=== PATIENT | female | born 1980 | race Caucasian/White ===

== ENCOUNTER → 2020-12-09 15:49 | Outpatient (CLI) | payer BC, SELFPAY ==
--- NOTE | ~2020-12-09 | US_ITS ---
EXAMINATION: US soft tissue head and neck EXAM DATE: 12/09/2020 16:26 INDICATION: Lymphadenopathy . TECHNIQUE: Multiple grayscale and Doppler images of the neck for lymphadenopathy were obtained (by a technologist who performed the scan) and subsequently reviewed. There is no prior study for comparis on. FINDINGS: In the right side of the neck to lesions most likely lymph nodes were measured at 1.7 x 0.4 x 0.8 cm, and a submandibular lesion at 2.4 x 0.5 x 1.4 cm which is mildly enlarged. In the left side of the neck 3 regions were measured, probably normal-sized lymph nodes at 1.0 x 0.2 x 0.7 cm, 0.4 x 0.2 x 0.7 cm, 1.5 x 0.2 x 0.7 cm. Incidental note made of category TR 4 left thyroid lobe nodule measuring 3.2 x 1.7 x 1.7 cm. IMPRESSION: 1. Mildly enlarged right submandibular lymph node. Could be reactive, recommend clinical follow-up a nd if it enlarges repeat exam. 2. Left thyroid lobe nodule large enough to recommend ultrasound-guided biopsy. Reviewed, dictated and finalized at location A. PICKER IMPRESSION: 1. Mildly enlarged right submandibular lymph node. Could be reactive, recommen d clinical follow-up and if it enlarges repeat exam. 2. Left thyroid lobe nodule large enough to recommend ultrasound-guided biopsy .
== END ==
PROVIDERS: PCP Nurse Practitioner Family; Visit Provider Nurse Practitioner Family
DX: R59.0 Localized enlarged lymph nodes (principal)
CPT/HCPCS: 76536

== ENCOUNTER 2020-12-21 09:29 | Outpatient (CLI) | payer BC, SELFPAY ==
--- NOTE | ~2020-12-21 | US_ITS ---
EXAMINATION: US FNA w image guidance DATE: 12/21/2020 10:29 INDICATION: Left thyroid nodule. TECHNIQUE: The procedure and its benefits and risks were discussed with the patient. Risks specifically discusse d included bleeding. The patient verbalized understanding of the risks and agreed to proceed. The nec k was prepped and draped in the usual sterile manner. 1% lidocaine was used for local anesthesia. 5 passes were made with a 25G needle into the lesion under ultrasound guidance. There were no immedia te complications. The patient understood to call the ordering physician for results after a week and a half and verbalized that understanding. FINDINGS: Grayscale ultrasound images demonstrate needles advanced into a 2.9 cm nodule in left thyroid lobe fo r biopsy. IMPRESSION: 1. Ultrasound-guided fine needle aspiration of a left thyroid nodule. Reviewed, dictated and finalized at location A. SCENER
== END 2020-12-21 09:30 | disposition home or self-care (01) ==
PROVIDERS: PCP Nurse Practitioner Family; Visit Provider Nurse Practitioner Family
DX: E04.1 Nontoxic single thyroid nodule (principal)
CPT/HCPCS: 10005; 88173; 88305

== ENCOUNTER → 2021-02-10 14:08 | Outpatient (CLI) | payer BC, SELFPAY ==
--- NOTE | ~2021-02-10 | MM_ITS ---
EXAMINATION: MM screening [facility] BI w carroll HISTORY: Screening mammogram TECHNIQUE: Craniocaudal and mediolateral oblique 3-D tomosynthesis images were obtained and synthetic 2-D images were generated. CAD analysis was submitted and interpreted. COMPARISON: 07/20/2019, 10/09/2005 BREAST PARENCHYMAL COMPOSITION: The breasts are extremely dense, which lowers the sensitivity of mamm ography. FINDINGS: There is no evidence of suspicious mass, calcification, or architectural distortion to sugg est malignancy in either breast. There has been no suspicious interval change. IMPRESSION: 1. No mammographic evidence of malignancy. 2. Recommend routine screening mammography in one year. BI-RADS Category 1: Negative Reviewed, dictated and finalized at location A.
== END ==
PROVIDERS: Visit Provider Obstetrics & Gynecology
DX: Z12.31 Encounter for screening mammogram for malignant neoplasm of breast (principal)
CPT/HCPCS: 77063; 77067

== ENCOUNTER 2021-07-07 09:19 | Outpatient (CLI) | payer BC, SELFPAY ==
--- NOTE | ~2021-07-07 | MMUS_ITS ---
EXAMINATION: MM diagnostic bryan LT w carroll, US breast LT limited HISTORY: Palpable left breast abnormality. TECHNIQUE: Additional 3-D tomosynthesis images of the left breast were performed and synthetic 2-D im ages were generated. CAD analysis was submitted and interpreted. High resolution Limited left breast ultrasound was performed. COMPARISON: Comparison to multiple prior studies sequentially, with oldest reviewed study dated 07/20. BREAST PARENCHYMAL COMPOSITION: The breasts are extremely dense, which lowers the sensitivity of mamm ography. FINDINGS: MAMMOGRAPHIC FINDINGS: There are no suspicious masses, calcifications or architectural distortion in the left breast to sugg est malignancy. ULTRASOUND: Limited left breast ultrasound: Normal heterogeneous echotexture without focal solid or cystic mass. IMPRESSION: 1. No evidence for malignancy in the left breast. 2. Routine yearly screening mammogram and regular clinical breast examination are recommended. BI-RADS Category 1: Negative Reviewed, dictated and finalized at location A. IMPRESSION: 1. No evidence for malignancy in the left breast. 2. Routine yearly screening mammogram and regular clinical breast examination a re recommended. BI-RADS Category 1: Negative
--- NOTE | ~2021-07-07 | US_ITS ---
EXAMINATION: US pelvic complete w TV DATE: 07/07/2021 09:10 INDICATION: IUD placement Comparison:No prior studies for comparison. TECHNIQUE: Multiple transabdominal and endovaginal sonographic images of the pelvis performed. FINDINGS: The uterus measures 10.7 x 6.2 x 5 cm. There is an IUD in the endometrium. The endometrial complex measures 5 mm. The right ovary measures 2 x 1.9 x 1.9 cm and the left ovary measures 3 x 2.7 x 2.6 cm. There is a 2 cm left ovarian cyst. There are small follicles in each ovary. Normal doppler signal in both ovaries. There is no free fluid in the pelvis. There are no abnormal masses seen on either side. IMPRESSION: 1. Mildly enlarged uterus. IUD present in the endometrium. 2: Left ovarian cyst measuring 2 cm. Reviewed, dictated and finalized at location A.
== END 2021-07-07 09:20 | disposition home or self-care (01) ==
LOC: ANHIMG 09:20
PROVIDERS: PCP Nurse Practitioner Family; Visit Provider Student in an Organized Health Care Education/Training Program
DX: N63.0 Unspecified lump in unspecified breast (principal); N94.10 Unspecified dyspareunia; N83.202 Unspecified ovarian cyst, left side
CPT/HCPCS: 76642; 76830; 76856; 77061; 77065; G0279

== ENCOUNTER 2022-06-11 10:04 | Outpatient (CLI) | payer OTHER, SELFPAY ==
--- NOTE | ~2022-06-11 | US_ITS ---
US axilla LT 06/11/2022 10:28 Indication: Palpable left axillary lump for several years Procedure: High-resolution Limited ultrasound of the left axilla Comparison: No prior studies for comparison. Findings: There is a normal-appearing lymph node in the area of palpable concern in the axilla measur ing 4 x 2 mm. No suspicious masses to suggest malignancy. Impression: 1: Normal left axillary lymph node measuring up to 4 mm, corresponding to the palpable finding. Routine yearly screening mammogram and regular clinical breast examination are recommended. BI-RADS CATEGORY 2 - BENIGN FINDINGS Reviewed, dictated and finalized at location A. Impression: 1: Normal left axillary lymph node measuring up to 4 mm, corresponding to the p alpable finding. Routine yearly screening mammogram and regular clinical breast examination are recommended. BI-RADS CATEGORY 2 - BENIGN FINDINGS
== END 2022-06-11 10:05 | disposition home or self-care (01) ==
PROVIDERS: PCP Nurse Practitioner Family; Visit Provider Nurse Practitioner Family
DX: R59.0 Localized enlarged lymph nodes (principal)
CPT/HCPCS: 76882

== ENCOUNTER 2022-09-15 08:51 | Outpatient (CLI) | payer OTHER, SELFPAY ==
--- NOTE | ~2022-09-15 | MM_ITS ---
EXAMINATION: MM screening [facility] BI w carroll HISTORY: Screening mammogram TECHNIQUE: Craniocaudal and mediolateral oblique 3-D tomosynthesis images were obtained and synthetic 2-D images were generated. CAD analysis was submitted and interpreted. COMPARISON: 07/07/2021, 02/10/2021, 07/20/2019 BREAST PARENCHYMAL COMPOSITION: The breasts are extremely dense, which lowers the sensitivity of mamm ography. FINDINGS: No suspicious mass, calcification, or architectural distortion are identified in either rogelio ast to suggest malignancy. There has been no suspicious interval change. IMPRESSION: 1. No mammographic evidence of malignancy. 2. Recommend routine screening mammography in one year. BI-RADS Category 1: Negative Reviewed, dictated and finalized at location A. EBACK EXCAVATOR
== END 2022-09-15 08:52 | disposition home or self-care (01) ==
LOC: ANHIMG 08:52
PROVIDERS: PCP Nurse Practitioner Family; Visit Provider Obstetrics & Gynecology
DX: Z12.31 Encounter for screening mammogram for malignant neoplasm of breast (principal)
CPT/HCPCS: 77063; 77067

== ENCOUNTER 2023-06-17 02:13 | Day surgery (SDC) | payer OTHER, SELFPAY ==
[2023-06-05 11:47] VITALS: BMI 20.5
[2023-06-17 07:52] VITALS: BP 117/65; PULSE 76; RESP 18; TEMP 36.2; O2SAT 100
[2023-06-17] MEDS: LACTATED RINGERS 1,000 ML 150 ML IV CONT (07:58)
--- NOTE | 2023-06-17 08:39 | WPDANESEPPF ---
Anes - Initial Pre Proc Eval Procedure: Operation Date: 06/17/23 09:00 Proposed Procedures p Screening Colonoscopy - Jase Fuentes MD Date/Time: 06/17/23 08:39 Surgeon: Jase Fuentes MD Pre Op Diagnosis: neoplasm screening Patient Data Age: 43 Gender: F Height: 1.73 m Weight: 59.7 kg Last Vital Signs Temp 97.2 F L 06/17/23 07:52 Pulse 76 06/17/23 07:52 Resp 18 06/17/23 07:52 BP 117/65 06/17/23 07:52 Pulse Ox 100 06/17/23 07:52 O2 Del Method Room Air 06/17/23 07:52 Allergies Allergy/AdvReac Type Severity Reaction Status Date / Time No Known Allergies Allergy Unverified 06/17/23 07:49 Home Medications Medication Instructions Recorded Confirmed Type levonorgestrel 21 mcg/24 hours (8 1 insert intrauterine ONCE 06/09/21 06/05/23 History yrs) 52 mg intrauterine device (Mirena) Patient hx anesthesia problems: none Family hx anesthesia problems: none Results Review: All pre-operative results and documents have been reviewed as part of the pre-operative evaluation. [facility] Past Medical History Medical History (Updated 04/11/22 @ 09:28 by Michele Gutierrez MD) Abnormal Pap smear of cervix 08/19/2012 ASCUS HPV negative ; 08/03/2010 KLAUS- ASCUS +HPV; 09/04/2010 COLPO - HGSIL ANTON 2; 09/20/2010 LEEP HGSIL ANTON 2; 05/17/2008 ASCUS Hpv negative; 04/27/2004 ASCUS +Hpv; 05/26/2004 COLPO LGSIL ANTON 2 Encounter for insertion of mirena IUD (05/14/19) Encounter for IUD insertion 02/29/12 Mirena insertion 05/14/16 Mirena insertion Encounter for IUD removal 12/28/15 Mirena removal History of in vitro fertilization (~12/2016) did not implant HPV (human papilloma virus) infection Screening mammogram, encounter for Surgical History Surgical History H/O LEEP 09/20/10 HGSIL ANTON 11 History of appendectomy (~2004) History of colposcopy with cervical biopsy 09/04/10 HGSIL ANTON II Family History Family History Father , due to renal cancer Renal cancer Mother Lung cancer Grandparent Cerebrovascular accident maternal grandmother Parkinson's disease paternal grandmother Social History Social History (Updated 04/11/22 @ 08:49 by WHITNEY Wang) Smoking status: Never smoker Alcohol intake: current Drinks per week: 7 Alcohol use details: one glass of wine daily. 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[employer] Gender identity (if verbalized by the patient): Female Sexual Orientation (if Verbalized by the Patient): Straight or Heterosexual Spiritual care concerns: No Anes - Eval Final PreProcedure Day of Procedure 06/17/23 08:39 Patient weight: normal Heart: regular rate and rhythm Lungs: clear to auscultation Airway: Mallampati scale class II Neurological: alert and oriented Last oral intake: >/= 8 hours ASA classification: I Emergent: no Anesthetic plan: proceed Anesthesia type and monitoring: general GIVS and standard monitoring Results Review: All pre-operative results and documents have been reviewed as part of the pre-operative evaluation. Informed Consent: The patient's anesthetic plan and its attendant risks and benefits were discussed with the patient/family/POA. Questions were solicited and answers provided to the satisfaction of the patient/family/POA.
--- NOTE | 2023-06-17 08:44 | PM.HPGS ---
History of Present Illness History of Present Illness Consent: Risks, benefits, and alternatives have been discussed and questions answered. Patient agrees to proceed with procedure. Chief complaint: neoplasm screening Narrative: Roque Noonan is a 43 year old female here for first screening colonoscopy Review of Systems Constitutional: Constitutional: Denies headache(s) and Denies weakness Eyes: Eyes: Denies blurry vision ENT: Reports Normal hearing present, Denies headache(s) and Denies neck pain Cardiovascular: Cardiovascular: Denies chest pain and Denies dyspnea Respiratory: Respiratory: Denies dyspnea Gastrointestinal: Gastrointestinal: Reports no additional gastrointestinal complaints Genitourinary: Genitourinary: Denies dysuria Musculoskeletal: Musculoskeletal: Denies neck pain Integumentary/Breasts: Skin/Breast: Denies dry skin Neurologic: Reports Normal hearing present, Denies headache(s) and Denies weakness Psychiatric: Psychiatric: Denies anxiety Endocrine: Endocrine: Denies change in body appearance Hematologic/Lymphatic: Hematologic/Lymphatic: Denies easy bleeding Allergic/Immunologic: Allergic/Immunologic: Denies urticaria PMFSH Past Medical History Medical History (Updated 06/17/23 @ 08:45 by Jase Fuentes MD) Abnormal Pap smear of cervix 08/19/2012 ASCUS HPV negative ; 08/03/2010 [facility]- ASCUS +HPV; 09/04/2010 COLPO - HGSIL ANTON 2; 09/20/2010 LEEP HGSIL ANTON 2; 05/17/2008 ASCUS Hpv negative; 04/27/2004 ASCUS +Hpv; 05/26/2004 COLPO LGSIL ANTON 2 Colon cancer screening Encounter for insertion of mirena IUD (05/14/19) Encounter for IUD insertion 02/29/12 Mirena insertion 05/14/16 Mirena insertion Encounter for IUD removal 12/28/15 Mirena removal History of in vitro fertilization (~12/2016) did not implant HPV (human papilloma virus) infection Screening mammogram, encounter for Surgical History Surgical History H/O LEEP 09/20/10 HGSIL ANTON 11 History of appendectomy (~2004) History of colposcopy with cervical biopsy 09/04/10 HGSIL ANTON II Family History Family History Father , due to renal cancer Renal cancer Mother Lung cancer Grandparent Cerebrovascular accident maternal grandmother Parkinson's disease paternal grandmother Social History Social History (Updated 04/11/22 @ 08:49 by WHITNEY Wang) Smoking status: Never smoker Alcohol intake: current Drinks per week: 7 Alcohol use details: one glass of wine daily. bc, rma Substance use: current Substance use type: marijuana Last use: ocassional Living arrangements: with family Additional living arrangements comments: Occupation/Education: occupation Additional occupation/education comments: [employer] Gender identity (if verbalized by the patient): Female Sexual Orientation (if Verbalized by the Patient): Straight or Heterosexual Spiritual care concerns: No Meds Home Medications and Allergies Home Medications Medication Instructions Recorded Confirmed Type levonorgestrel 21 mcg/24 hours (8 1 insert intrauterine ONCE 06/09/21 06/05/23 History yrs) 52 mg intrauterine device (Mirena) Allergies Allergy/AdvReac Type Severity Reaction Status Date / Time No Known Allergies Allergy Unverified 06/17/23 07:49 Vital Signs Vital Signs - 24 hr 06/17/23 07:52 Temperature 97.2 F L Pulse Rate 76 Respiratory Rate 18 Blood Pressure 117/65 Pulse Oximetry 100 Oxygen Delivery Room Air Exam Const: General: comfortable and no acute distress HENMT: Face/Nose/Sinus: Normal nares present Eyes: General: appearance normal, both eyes and all related structures Neck: Neck: no JVD Resp: Auscultation: clear to auscultation bilaterally Cardio: Rate: regular rate Rhythm: regular rhythm GI:
[2023-06-17 09:06] VITALS: BP 89/50; PULSE 61; RESP 20; O2SAT 98
[2023-06-17 09:16] VITALS: BP 110/64; PULSE 53; RESP 16; O2SAT 98
[2023-06-17 09:26] VITALS: BP 102/66; PULSE 50; RESP 15; O2SAT 98
== END 2023-06-17 09:34 | disposition home or self-care (01) ==
PROVIDERS: PCP Nurse Practitioner Family; Visit Provider Internal Medicine Gastroenterology
PROC: 0DJD8ZZ Inspection of Lower Intestinal Tract, Via Natural or Artificial Opening Endoscopic (ICD-10-PCS; CPT 45378; principal; 2023-06-17 09:00)
DX: Z12.11 Encounter for screening for malignant neoplasm of colon (principal); K64.8 Other hemorrhoids
CPT/HCPCS: 45378; J2704; J7120

== ENCOUNTER 2025-07-02 08:22 | Outpatient (CLI) | payer BC, SELFPAY ==
--- NOTE | ~2025-07-02 | MM_ITS ---
EXAMINATION: MM screening [facility] BI w carroll HISTORY: Screening TECHNIQUE: Craniocaudal and mediolateral oblique 3-D tomosynthesis images were obtained and synthetic 2-D images were generated. CAD analysis was submitted and interpreted. COMPARISON: Comparison to multiple prior studies sequentially, with oldest reviewed study dated , 07/20/2019 BREAST PARENCHYMAL COMPOSITION: The breasts are extremely dense, which lowers the sensitivity of mammography. FINDINGS: There is no evidence of suspicious mass, calcification, or architectural distortion to suggest malignancy in either breast. IMPRESSION: 1. No mammographic evidence of malignancy. 2. Recommend routine screening mammography in one year. BI-RADS Category 1: Negative Reviewed, dictated and finalized at location B.
--- OUTSIDE RECORDS SUMMARY | 2025-07-02 08:28 | XMS_ITS | Clinical Summary ---
Author Organization [facility] Identified Address [address] [place] [address] Care Team Providers Care Circuit Breaker Supervisor Name Role Phone Unavailable Primary Care Provider Unavailabl e Source Comments [facility] Identified,non-owned Affiliates and Associated Physician Practices is amultiple site organization consisting of ambulatory clinics and hospital sitesin [place], [place], [place]. This disclosure is being madepursuant to the Care Everywhere program and may not contain all information available regarding this patient. Last updated 18.[facility] Identified Allergies No known active allergies Medications * Be aware that medications may not be up to date on this document. Alwaysverify current medications with the patient. 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 Gender Identity Not on file Sexual Orientation Not on file Last Filed Vital Signs Vital Sign Reading Time Taken Comments Blood Pressure 120/80 09/30/2018 9:57 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 Pulse 82 09/30/2018 9:57 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 Temperature 36.7 C (98 F) 09/30/2018 9:57 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 Respiratory Rate 16 09/30/2018 9:57 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 Oxygen Saturation 97% 09/30/2018 9:57 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 Inhaled Oxygen Concentration - - Weight 63.5 kg (140 lb) 09/30/2018 9:57 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 Height 172.7 cm (5' 8) 09/30/2018 9:57 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 Body Mass Index 21.29 09/30/2018 9:57 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 Plan of Treatment Health Maintenance Due Date Last Done Comments COLOGUARD (AGES 45-75) - COL ON CA SCREENING 1978 COLON MONITORING 1978 COLONOSCOPY - COLON CA SCREENING 1978 CT COLONOGRAPHY - COLON CA SCREENING 1978 Colorectal Cancer Screening 1978 FIT - COLON CA SCREENING 1978 FLEX SIG - COLON CA SCREENING 1978 LIPID TESTING 1978 MAMMOGRAM 1978 HIV SCREENING 1993 HEPATITIS C SCREENING 01/28/1996 HEPATITIS B VACCINE (1 of 3 - 19+ 3-dose series) 1997 DEPRESSION SCREENING 10/21/2024 COVID-19 VACCINE (1 - 2023-2 5 season) 2025 INFLUENZA VACCINE (#1) 2025 ZOSTER VACCINE (1 of 2) 02/02/2028 DTAP/TDAP/TD VACCINES (2 - T d or Tdap) 09/30/2028 09/30/2018 HIB VACCINE Aged Out No longer eligi ble based on patient's age to complete this topic HPV VACCINE Aged Out No longer eligi ble based on patient's age to complete this topic MENINGOCOCCAL (Group B) VACC INE SHARED DECISION-MAKING Aged Out No longer eligibl e based on patient's age to complete this topic MENINGOCOCCAL GROUPS A/C/Y/W VACCINE Aged Out No longer eligible b ased on patient's age to complete this topic PNEUMOCOCCAL VACCINE Aged Out No long er eligible based on patient's age to complete this topic Insurance [facility]
== END 2025-07-02 08:23 | disposition home or self-care (01) ==
LOC: ANHFOHIMG 08:24
PROVIDERS: PCP Nurse Practitioner Family; Visit Provider Nurse Practitioner Family
DX: Z12.31 Encounter for screening mammogram for malignant neoplasm of breast (principal)
CPT/HCPCS: 77063; 77067